=== PATIENT | female | born 1990 | race American Indian/Alaskan Native ===

== ENCOUNTER 2018-12-07 13:44 | Emergency (ER) | payer SELFPAY ==
[2018-12-07 14:25] VITALS: BP 122/77
[2018-12-07] MEDS ORDERED: oxyCODONE /ACETAMINOPHEN 5-325MG TAB PO ONE (14:25)
--- NOTE | 2018-12-07 14:28 | Emergency Department Report ---
Blank Doc - Documentation Documentation: 28 y/o female one hour s/p fall via tripping cuasing a popping sound and swell ing to left foot. This initial assessment/diagnostic orders/clinical plan/treatment(s) is/are subject to change based on patient's health status, clinical progression and re- assessment by fellow clinical providers in the ED. Further treatment and workup at subsequent clinical providers discretion. Patient/guardians urged not to elope from the ED as their condition may be serious if not clinically assessed and managed. Initial orders include swelling, bruising and tenderness to lateral foot. : xray foot
--- NOTE | 2018-12-07 15:08 | Emergency Department Report ---
ED Lower Extremity HPI - General Chief Complaint: Extremity Injury, Lower Stated Complaint: LFT FOOT BROKE/PAIN Time Seen by Provider: 12/07/18 14:23 Source: patient Mode of arrival: Wheelchair Limitations: No Limitations - History of Present Illness Initial Comments: 28-year-old female presents to the emergency room for left foot pain that started today after having a roll of her foot and stepping down. Patient states she was moving), tripped did not fall but heard a cracking and popping sound to her left foot. Patient reports this happened 1 hour prior to arrival. Patient reports the pains 10 out of 10. Patient denies any past medical history takes no medications on a daily basis and has no known drug allergies. Patient reports her last menstrual period was 11/11/2018. 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) Injury: Foot: Left Type of Injury: unknown Place: home Severity: severe Severity scale (0 -10): 10 Improves With: immobilization Worsens With: weight bearing, movement, palpation Context: walking ( stripped) Associated Symptoms: snap/pop sensation, swelling, numbness, unable to bear weight - Related Data Previous Rx's Medication Instructions Recorded Last Taken Type HYDROcodone/APAP 7.5-325 [Republic 1 each PO Q8HR PRN #12 tablet 12/07/18 Unknown Rx 7.5/325] Ibuprofen [Motrin 800 MG tab] 800 mg PO Q8HR PRN #30 tablet 12/07/18 Unknown Rx Allergies Allergy/AdvReac Type Severity Reaction Status Date / Time No Known Allergies Allergy Unverified 12/07/18 13:46 ED Review of Systems ROS: Stated complaint: LFT FOOT BROKE/PAIN Other details as noted in HPI Comment: All other systems reviewed and negative ED Past Medical Hx - Past Medical History Previous Medical History?: No - Surgical History Past Surgical History?: No - Social History Smoking Status: Current Every Day Smoker Substance Use Type: Marijuana - Medications Home Medications: Home Medications Medication Instructions Recorded Confirmed Last Taken Type HYDROcodone/APAP 7.5-325 [Republic 1 each PO Q8HR PRN #12 tablet 12/07/18 Unknown Rx 7.5/325] Ibuprofen [Motrin 800 MG tab] 800 mg PO Q8HR PRN #30 tablet 12/07/18 Unknown Rx ED Physical Exam - General Limitations: No Limitations General appearance: alert, in no apparent distress - Head Head exam: Present: atraumatic, normocephalic - Eye Eye exam: Present: normal appearance - Expanded Lower Extremity Exam Left Upper Leg exam: Present: normal inspection, full ROM. Absent: tenderness Knee exam: Present: normal inspection, full ROM. Absent: tenderness Lower Leg exam: Present: normal inspection, full ROM. Absent: tenderness, swelling Foot/Toe exam: Present: tenderness, swelling, ecchymosis, deformity Neuro vascular tendon exam: Present: no vascular compromise - Neurological Exam Neurological exam: Present: alert, oriented X3 - Psychiatric Psychiatric exam: Present: normal affect, normal mood - Skin Skin exam: Present: warm, dry, intact, normal color. Absent: rash ED Course Vital Signs 12/07/18 14:23 Temperature 98.2 F Pulse Rate 82 Respiratory 18 Rate Blood Pressure 122/77 O2 Sat by Pulse 100 Oximetry ED Lower Extremity MDM - Radiology Data Radiology results: report reviewed Patient: ROSEY CAMERON MR#: [id number] : 1990 Acct:[id number] Age/Sex: 28 / F ADM Date: 12/07/18 Loc: ED Attending Dr: Ordering Physician: ELSA SHELTON Date of Service: 12/07/18 Procedure(s): XR foot 3+V LT Accession Number(s): [id number] cc: ELSA SHELTON Fluoro Time In Minutes: LEFT FOOT, 3 VIEWS INDICATION: left foot pain and swelling. COMPARISON: None. IMPRESSION: A mildly displaced oblique fracture is identified to the shaft of the fifth metatarsal. No calcified callus is identified. The remaining bony structures and joint spaces are intact. No significant DJD. Mild lateral soft tissue swelling. Signer Name: Joe Pino Jr, MD Signed: 12/07/2018 3:31 PM Workstation Name: [id number] Transcribed By: TTR Dictated By: JOE PINO JR, MD Electronically Authenticated By: JOE PINO JR, MD Signed Date/Time: 12/07/181530 DD/ 30 TD/TT: - Medical Decision Making 28-year-old female presents to the emergency room for left foot pain that started today after having a roll of her foot and stepping down. Patient states she was moving), tripped did not fall but heard a cracking and popping sound to her left foot. Patient reports this happened 1 hour prior to arrival. Patient reports the pains 10 out of 10. Patient denies any past medical history takes no medications on a daily basis and has no known drug allergies. Patient reports her last menstrual period was 11/11/2018. Patient has a oblique fracture the fifth metatarsal. Patient be placed in a posterior splint pain medication for pain management and referral to orthopedic provider. Patient is also placed on on crutches. Critical care attestation.: If time is entered above; I have spent that time in minutes in the direct care of this critically ill patient, excluding procedure time. ED Disposition Clinical Impression: Foot fracture, left Qualifiers: Encounter type: initial encounter Fracture type: closed Qualified Code(s): S92.902A - Unspecified fracture of left foot, initial encounter for closed fracture Disposition: DC- TO HOME OR SELFCARE Is pt being admited?: No Does the pt Need Aspirin: No Condition: Stable Instructions: Foot Fracture in Adults (ED) Additional Instructions: Take pain medication as prescribed. Do not operate heavy machinery while taking Republic. Please do not weight bear at all on this foot it's very important free to follow-up with orthopedic provider. I have listed their names below for your convenience. Prescriptions: Ibuprofen [Motrin 800 MG tab] 800 mg PO Q8HR PRN #30 tablet PRN Reason: Pain , Severe (7-10) HYDROcodone/APAP 7.5-325 [Republic 7.5/325] 1 each PO Q8HR PRN #12 tablet PRN Reason: Pain Referrals: GABRIEL TAPIA MD [Staff Physician] - 3-5 Days KELSEY DISLA MD [Staff Physician] - 3-5 Days BRENDEN GLEZ MD [Staff Physician] - 3-5 Days Forms: Work/School Release Form(ED)
--- NOTE | 2018-12-07 15:36 | XRay Report ---
LEFT FOOT, 3 VIEWS INDICATION: left foot pain and swelling. COMPARISON: None. IMPRESSION: A mildly displaced oblique fracture is identified to the shaft of the fifth metatarsal. No calcified callus is identified. The remaining bony structures and joint spaces are intact. No sig nificant DJD. Mild lateral soft tissue swelling. Signer Name: Joe Pino Jr, MD Signed: 12/07/2018 3:31 PM Workstation Name: [id number]
== END 2018-12-07 15:54 | disposition home or self-care (01) ==
LOC: ED 13:44
DX: S92.352A Displaced fracture of fifth metatarsal bone, left foot, initial encounter for closed fracture (principal); F17.200 Nicotine dependence, unspecified, uncomplicated; W01.0XXA Fall on same level from slipping, tripping and stumbling without subsequent striking against object, initial encounter; Y93.89 Activity, other specified; Y92.89 Other specified places as the place of occurrence of the external cause; Y99.8 Other external cause status